=== PATIENT | female | born 1990 | race Hispanic/Latino ===

== ENCOUNTER 2018-04-18 10:43 | Emergency (ER) | payer SELFPAY ==
[2018-04-18 12:25] LABS: Red Blood Count 4.12 M/mm3 (3.65-5.03)
[2018-04-18 12:26] LABS: Basophils % (Auto) 0.3 % (0.0-1.8); Eosinophils # (Auto) 0.3 K/mm3 (0.0-0.4); Hematocrit 39.2 % (30.3-42.9); Lymphocytes # (Auto) 3.3 K/mm3 (1.2-5.4); Lymphocytes % (Auto) 23.6 % (13.4-35.0); Mean Corpuscular HGB Conc 33 % (30-34); Mean Corpuscular Hemoglobin 32 pg (28-32); Mean Corpuscular Volume 95 fl (79-97); Mean Platelet Volume 7.9 fl (6-12); Monocytes # (Auto) 0.9 K/mm3 (0.0-0.8); Monocytes % (Auto) 6.2 % (0.0-7.3); Platelet Count 258 K/mm3 (140-440); Red Cell Distribution Width 13.8 % (13.2-15.2)
[2018-04-18 12:33] LABS: BUN/Creatinine Ratio 13; Blood Urea Nitrogen 8 mg/dL (7-17); Calcium 8.9 mg/dL (8.4-10.2); Hemolysis Index 21
[2018-04-18 12:37] LABS: Alanine Aminotransferase 23 units/L (7-56); Albumin 3.7 g/dL (3.9-5)
[2018-04-18 12:38] LABS: Bilirubin,Direct < 0.2 mg/dL (0-0.2)
[2018-04-18 12:58] LABS: Bilirubin,Urine NEG (Negative); Blood,Urine NEG (Negative); Color,Urine Yellow (Yellow); Hyaline Casts,Urine 1 /LPF; Mucus,Urine FEW /HPF; Protein,Urine <15 mg/dL mg/dL (Negative)
[2018-04-18 12:59] LABS: HCG Qualitative,Urine Negative (Negative)
[2018-04-18 13:01] LABS: Benzodiazepines Screen,Urine PRESUMPTIVE NEGATIVE; Cocaine Screen,Urine PRESUMPTIVE NEGATIVE; Methadone Screen,Urine PRESUMPTIVE NEGATIVE; Opiate Screen,Urine PRESUMPTIVE NEGATIVE
[2018-04-18 13:14] LABS: Amphetamine Screen,Urine PRESUMPTIVE POSITIVE; Cannabinoid Screen,Urine PRESUMPTIVE POSITIVE
--- NOTE | 2018-04-18 16:18 | Emergency Department Report ---
ED General Adult HPI - General Chief complaint: Medical Clearance Stated complaint: POSSIBLE OD Time Seen by Provider: 04/18/18 11:18 Source: patient, EMS Mode of arrival: Stretcher Limitations: Other - History of Present Illness Initial comments: This is a 27-year-old female was found in the street acting aberrantly. She was brought to the emergency department by law enforcement. By the time she got to the emergency department she was coherent and walking about. She admitted to taking a "capfull of GHB". She denied any other coingestants. She denied any intent for self-harm. She admitted to previous opiate abuse but stated that she was now "clean" with respect to opiates. She her only complaint is that she is hungry at the time of her arrival. -: Gradual Associated Symptoms: denies other symptoms - Related Data Previous Rx's Medication Instructions Recorded Last Taken Type HYDROcodone/APAP 5-325 [[place] 1 each PO Q6HR PRN #14 tablet 09/25/13 Unknown Rx 5/325 mg] Sulfamethoxazole/Trimethoprim 1 each PO BID #20 tablet 09/25/13 Unknown Rx [Bactrim DS] Allergies Allergy/AdvReac Type Severity Reaction Status Date / Time No Known Allergies Allergy Verified 04/18/18 10:52 ED Review of Systems ROS: Stated complaint: POSSIBLE OD Other details as noted in HPI Constitutional: denies: chills, fever Eyes: denies: eye pain, eye discharge, vision change ENT: denies: ear pain, throat pain Respiratory: denies: cough, shortness of breath, wheezing Cardiovascular: denies: chest pain, palpitations Endocrine: no symptoms reported Gastrointestinal: denies: abdominal pain, nausea, diarrhea Genitourinary: denies: urgency, dysuria, discharge Musculoskeletal: denies: back pain, joint swelling, arthralgia Skin: denies: rash, lesions Neurological: denies: headache, weakness, paresthesias Psychiatric: denies: anxiety, depression Hematological/Lymphatic: denies: easy bleeding, easy bruising ED Past Medical Hx - Past Medical History Hx Psychiatric Treatment: Yes (drug use) - Surgical History Hx Cholecystectomy: Yes Hx Appendectomy: Yes Additional Surgical History: c section x 2 - Social History Smoking Status: Current Every Day Smoker Substance Use Type: Heroin, Other - Medications Home Medications: Home Medications Medication Instructions Recorded Confirmed Last Taken Type HYDROcodone/APAP 5-325 [[place] 1 each PO Q6HR PRN #14 tablet 09/25/13 Unknown Rx 5/325 mg] Sulfamethoxazole/Trimethoprim 1 each PO BID #20 tablet 09/25/13 Unknown Rx [Bactrim DS] ED Physical Exam - General Limitations: No Limitations General appearance: alert, in no apparent distress - Head Head exam: Present: atraumatic, normocephalic - Eye Eye exam: Present: normal appearance, PERRL, EOMI. Absent: scleral icterus - ENT ENT exam: Present: mucous membranes moist - Neck Neck exam: Present: normal inspection. Absent: tenderness, meningismus - Respiratory Respiratory exam: Present: normal lung sounds bilaterally. Absent: respiratory distress - Cardiovascular Cardiovascular Exam: Present: regular rate, normal rhythm. Absent: systolic murmur, diastolic murmur, rubs, gallop - GI/Abdominal GI/Abdominal exam: Present: soft, normal bowel sounds. Absent: distended, tenderness, guarding, rebound, rigid - Extremities Exam Extremities exam: Present: normal inspection - Back Exam Back exam: Present: normal inspection - Neurological Exam Neurological exam: Present: alert, oriented X3, CN II-XII intact. Absent: motor sensory deficit - Psychiatric Psychiatric exam: Present: normal affect, normal mood - Skin Skin exam: Present: warm, dry, intact, normal color. Absent: rash ED Course Vital Signs 04/18/18 10:53 Temperature 97.6 F Pulse Rate 74 Respiratory 18 Rate Blood Pressure 123/78 O2 Sat by Pulse 100 Oximetry - Reevaluation(s) Reevaluation #1: Patient was completely coherent to the emergency department is fully ambulatory. She was observed for an ample amount of time. She had no clinical evidence of dangerous coingestants. She is ultimately discharged in stable condition. The patient was not depressed nor suicidal nor psychotic in any way. She is appropriate for outpatient disposition. 04/18/18 16:19 ED Medical Decision Making - Lab Data Result diagrams: 04/18/18 11:39 04/18/18 11:39 Laboratory Results - last 24 hr 04/18/18 04/18/18 04/18/18 11:39 11:39 11:39 WBC 14.2 H RBC 4.12 Hgb 13.0 Hct 39.2 MCV 95 MCH 32 MCHC 33 RDW 13.8 Plt Count 258 Lymph % (Auto) 23.6 [place] % (Auto) 6.2 Eos % (Auto) 2.0 Baso % (Auto) 0.3 Lymph # 3.3 [place] # 0.9 H Eos # 0.3 Baso # 0.0 Add Manual Diff Complete Seg Neutrophils % 67.9 Seg Neutrophils # 9.6 H Sodium 142 Potassium 3.8 Chloride 103.8 Carbon Dioxide 25 Anion Gap 17 BUN 8 Creatinine 0.6 L Estimated GFR > 60 BUN/Creatinine Ratio 13 Glucose 91 Calcium 8.9 Total Bilirubin Direct Bilirubin Indirect Bilirubin AST ALT Alkaline Phosphatase Total Protein Albumin Albumin/Globulin Ratio Urine Color Urine Turbidity Urine pH Ur Specific [place] Urine Protein Urine Glucose (UA) Urine Ketones Urine Blood Urine Nitrite Urine Bilirubin Urine Urobilinogen Ur Leukocyte Esterase Urine WBC (Auto) Urine RBC (Auto) U Epithel Cells (Auto) Hyaline Casts Urine Mucus Urine HCG, Qual Salicylates < 0.3 L Urine Opiates Screen Urine Methadone Screen Acetaminophen Ur Barbiturates Screen Ur Phencyclidine Scrn Ur Amphetamines Screen U Benzodiazepines Scrn Urine Cocaine Screen U Marijuana (THC) Screen Drugs of Abuse Note Plasma/Serum Alcohol 04/18/18 04/18/18 04/18/18 11:39 11:39 11:39 WBC RBC Hgb Hct MCV MCH MCHC RDW Plt Count Lymph % (Auto) [place] % (Auto) Eos % (Auto) Baso % (Auto) Lymph # [place] # Eos # Baso # Add Manual Diff Seg Neutrophils % Seg Neutrophils # Sodium Potassium Chloride Carbon Dioxide Anion Gap BUN Creatinine Estimated GFR BUN/Creatinine Ratio Glucose Calcium Total Bilirubin 0.20 Direct Bilirubin < 0.2 Indirect Bilirubin 0.0 AST 26 ALT 23 Alkaline Phosphatase 86 Total Protein 7.4 Albumin 3.7 L Albumin/Globulin Ratio 1.0 Urine Color Urine Turbidity Urine pH Ur Specific [place] Urine Protein Urine Glucose (UA) Urine Ketones Urine Blood Urine Nitrite Urine Bilirubin Urine Urobilinogen Ur Leukocyte Esterase Urine WBC (Auto) Urine RBC (Auto) U Epithel Cells (Auto) Hyaline Casts Urine Mucus Urine HCG, Qual Salicylates Urine Opiates Screen Urine Methadone Screen Acetaminophen 5.0 L Ur Barbiturates Screen Ur Phencyclidine Scrn Ur Amphetamines Screen U Benzodiazepines Scrn Urine Cocaine Screen U Marijuana (THC) Screen Drugs of Abuse Note Plasma/Serum Alcohol < 0.01 04/18/18 04/18/18 12:05 12:05 WBC RBC Hgb Hct MCV MCH MCHC RDW Plt Count Lymph % (Auto) [place] % (Auto) Eos % (Auto) Baso % (Auto) Lymph # [place] # Eos # Baso # Add Manual Diff Seg Neutrophils % Seg Neutrophils # Sodium Potassium Chloride Carbon Dioxide Anion Gap BUN Creatinine Estimated GFR BUN/Creatinine Ratio Glucose Calcium Total Bilirubin Direct Bilirubin Indirect Bilirubin AST ALT Alkaline Phosphatase Total Protein Albumin Albumin/Globulin Ratio Urine Color Yellow Urine Turbidity Clear Urine pH 5.0 Ur Specific [place] 1.018 Urine Protein <15 mg/dl Urine Glucose (UA) Neg Urine Ketones Tr Urine Blood Neg Urine Nitrite Neg Urine Bilirubin Neg Urine Urobilinogen 4.0 Ur Leukocyte Esterase Neg Urine WBC (Auto) 1.0 Urine RBC (Auto) 3.0 U Epithel Cells (Auto) 7.0 Hyaline Casts 1 Urine Mucus Few Urine HCG, Qual Negative Salicylates Urine Opiates Screen Presumptive negative Urine Methadone Screen Presumptive negative Acetaminophen Ur Barbiturates Screen Presumptive negative Ur Phencyclidine Scrn Presumptive negative Ur Amphetamines Screen Presumptive positive U Benzodiazepines Scrn Presumptive negative Urine Cocaine Screen Presumptive negative U Marijuana (THC) Screen Presumptive positive Drugs of Abuse Note Disclamer Plasma/Serum Alcohol Critical care attestation.: If time is entered above; I have spent that time in minutes in the direct care of this critically ill patient, excluding procedure time. ED Disposition Clinical Impression: Gammahydroxy butarate (GHB) use disorder, severe, in early remission, in controlled environment, dependence, Amphetamine abuse Disposition: [id number] TO HOME OR SELFCARE Is pt being admited?: No Does the pt Need Aspirin: No Condition: Stable Instructions: Methamphetamine Abuse (ED) Additional Instructions: Obviously these drugs should be avoided. Return to the emergency department any further symptoms. You have been referred to [facility] has outside medical clinic for follow-up care. Referrals: PRIMARY CARE [Primary Care Provider] - 3-5 Days Time of Disposition: 16:21
[2018-04-18 16:19] VITALS: BP 111/71
== END 2018-04-18 17:25 | disposition home or self-care (01) ==
LOC: ED 10:43
DX: F19.21 Other psychoactive substance dependence, in remission (principal); F15.10 Other stimulant abuse, uncomplicated; F17.200 Nicotine dependence, unspecified, uncomplicated; F11.10 Opioid abuse, uncomplicated; Z90.49 Acquired absence of other specified parts of digestive tract
CPT/HCPCS: 36415; 80048; 80074; 80307; 81001; 81025; 85025; 99284; G0480; 80320